=== PATIENT | male | born 1940 | race Caucasian/White ===

== ENCOUNTER → 2016-08-18 | Outpatient (CLI) | payer OTHER, MEDICARE ==
[~2016-08-18] MED LIST: RANI75TA7 PO; SYN50 PO; SYN75 PO
== END | disposition home or self-care (01) ==
LOC: C.LAB1850 10:49
PROVIDERS: ATTEND Family Medicine
DX: E55.9 Vitamin D deficiency, unspecified (principal); E03.9 Hypothyroidism, unspecified

== ENCOUNTER → 2016-10-26 | Outpatient (CLI) | payer OTHER, MEDICARE ==
--- NOTE | 2016-10-26 09:13 | DIAGNOSTIC IMAGING REPORT ---
RIGHT SHOULDER MIN 2 VIEWS CLINICAL HISTORY: Right shoulder pain. Trauma. COMPARISON: None. DISCUSSION: There is a fracture the distal right clavicle. No fractures the proximal humerus are visualized. There are osteoarthritic changes involving the humeral acromial joint. There are humeral head spurs. There is no dislocation. IMPRESSION: 1. Acute fracture of the distal right clavicle 2. No fractures or dislocations of the proximal right humerus Electronically signed by: Jason Adams M.D. 10/26/2016 9:11 AM Dictated Date/Time: 10/26/2016 9:10 AM
== END | disposition home or self-care (01) ==
LOC: C.RDSM 08:57
PROVIDERS: ATTEND Physician Assistant
DX: M25.511 Pain in right shoulder (principal)

== ENCOUNTER → 2016-11-08 | Outpatient (CLI) | payer OTHER, MEDICARE ==
--- NOTE | 2016-11-06 13:39 | DIAGNOSTIC IMAGING REPORT ---
RIGHT CLAVICLE COMPLETE CLINICAL HISTORY: RIGHT CLAVICLE FX Right trauma. Pain. COMPARISON: 10/26/2016 DISCUSSION: Oblique fracture distal right clavicle. No change in alignment as compared to the prior study. Degenerative change glenohumeral joint as well as acromioclavicular joint. Old fracture right third rib as well as second rib. There is no evidence for soft tissue swelling. IMPRESSION: Fracture distal aspect right clavicle. No change in alignment from the prior study. Electronically signed by: Anjel Romero M.D. 11/06/2016 1:38 PM Dictated Date/Time: 11/06/2016 1:37 PM
== END | disposition home or self-care (01) ==
LOC: C.RDSM 14:59
PROVIDERS: ATTEND Physician Assistant
DX: Z09 Encounter for follow-up examination after completed treatment for conditions other than malignant neoplasm (principal); M25.511 Pain in right shoulder

== ENCOUNTER → 2017-02-12 | Outpatient (CLI) | payer OTHER, MEDICARE ==
[2017-02-12 14:24] LABS: THYROID STIMULATING HORMONE 4.93 uIu/ml (0.300-4.500)
--- NOTE | 2017-02-19 17:22 | CODING QUERY MEDICAL NECESSITY ---
SUPPORTING DIAGNOSIS NEEDED A supporting diagnosis is required for the test/procedure performed on this patient in order for us to be reimbursed by the patient's insurance. Please provide a supporting diagnosis for the following test/procedure listed below next to the test name along with your signature. *If there is no additional diagnosis for this patient that would support the following test/procedure please document that below next to the test/procedure. Test(s)/Procedure(s) that require a supporting diagnosis: * VITAMIN D, 25-HYDROXY DIAGNOSIS: Provider Signature: Date: Thank you Terrie Acuna [employer] Management Once completed, please kindly fax back to [phone] For questions please call [phone]
== END | disposition home or self-care (01) ==
LOC: C.LABBC 11:35
PROVIDERS: ATTEND Family Medicine
DX: E29.1 Testicular hypofunction (principal); E55.9 Vitamin D deficiency, unspecified

== ENCOUNTER → 2017-03-08 | Outpatient (CLI) | payer OTHER, MEDICARE | END | disposition home or self-care (01) | LOC: C.RDSM 07:45 | PROVIDERS: ATTEND Physical Medicine & Rehabilitation Sports Medicine | DX: M16.12 Unilateral primary osteoarthritis, left hip (principal); S42.009A Fracture of unspecified part of unspecified clavicle, initial encounter for closed fracture; X58.XXXA Exposure to other specified factors, initial encounter ==

== ENCOUNTER → 2017-07-23 | Outpatient (CLI) | payer OTHER, MEDICARE | END | disposition home or self-care (01) | LOC: C.LABBC 10:38 | PROVIDERS: ATTEND Family Medicine | DX: E03.9 Hypothyroidism, unspecified (principal); E55.9 Vitamin D deficiency, unspecified ==

== ENCOUNTER 2023-09-29 06:33 | Observation (INO) ==
--- NOTE | 2023-09-16 10:07 | Anesthesiology Consultation ---
Date of Service September 16, 2023 Assessment & Plan (1) Encounter for pre-operative examination: Chart Review Chart Review: Acceptable Risk for Surgery and Patient NOT seen in Pre Admission Testing Patient is NOT an ideal OPJ candidate (currently 23 hour observation) -Infectious Disease screening: Per PAT nursing assessment on 09/16/23. No known infectious disease contacts in past 10 days or current infectious disease sy mptoms. No recent travel outside the country. Patient seen by PCP 09/06/2023 = patient scheduled to have upcoming hip replacement. Hip replacement originally to be done in January 2023 but had to be postponed September 2023 to allow for him to have extensive dental work done. He has an acceptable risk for the planned total hip replacement. Postprocedural hypothyroidismon levothyroxine. ED. GERDon famotidine. Pacemakerfollows with cardiology. Sleep behavior disorder. Lymphopeniawill follow CBC. Patient seen by cardiology 09/03/2023 = patient seen for routine cardiology follow-up as well as preoperative cardiology evaluation and risk assessment. Patient presents today feeling well. Had recent echo that revealed preserved LV systolic function and mild AAS. Nuclear stress test about 6 months ago without inducible ischemia. Stable cardiac symptoms. BP controlled. No anginal complaints. Mild noted and will be monitored with yearly echo. No overt cardiac contraindications to elective hip replacement. Cardio risks discussed. Patient aware of risks and wishes to proceed. Standard pacemaker precautions should be taken (Medtronic device). Patient does not have defibrillator. Continue current medications. Follow-up in 6 months. History Surgery Operation Date: 09/29/23 09:00 Proposed Procedures p Left Hip Arthroplasty(Left) - Tunde Carvajal MD Height/Weight Height: 5 ft 9 in Weight: 75.75 kg Allergies Allergy/AdvReac Type Severity Reaction Status Date / Time adhesive Allergy Mild Blistering Verified 09/16/23 08:59 gramicidin D Allergy Mild Rash Verified 09/16/23 08:59 neomycin Allergy Mild Rash Verified 09/16/23 08:59 nystatin Allergy Mild Rash Verified 09/16/23 08:59 Medications Home Medications Medication Instructions Recorded Confirmed Last Taken sildenafil (pulm.hypertension) 20 100 mg PO DAILY PRN sexual activity 03/31/22 09/16/23 Unknown mg tablet famotidine 20 mg tablet 20 mg PO DAILY PRN Acid Reflux 04/01/22 09/16/23 Unknown levothyroxine 50 mcg tablet See Rx Instructions .Route 10/21/22 09/16/23 Unknown (Synthroid) .COMPLEX #205 tabs cholecalciferol (vitamin D3) 25 50 mcg PO BID 02/01/23 09/16/23 Unknown mcg (1,000 unit) tablet (Vitamin D3) calcium carbonate 300 mg (750 mg) 300 mg PO BID PRN Acid Reflux 09/16/23 09/16/23 Unknown chewable tablet (Tums) Past Medical History Medical History (Updated 09/16/23 @ 11:51 by Inessa Dillard PA-C) Dyslipidemia Erectile dysfunction GERD (gastroesophageal reflux disease) H/O hydrocele History of COVID-19 x2, most recent approximately 01/11/23 (Urgent Care; [facility])- sore throat for 2 days, had Paxlovid LBBB (left bundle branch block) Chronic Mild aortic stenosis Echo 02/02/23: Mild aortic stenosis (BRITTANY 1.4 cm, MG 9.1 mmHg) PAC (premature atrial contraction) follows with Dr. 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- s/p pacemaker 2020 Past Family History Family History Father , age 98 BPH (benign prostatic hyperplasia) CHF (congestive heart failure) Mother , age 84 T-cell lymphoma Brother , age 59 Sudden cardiac Brother Spinal stenosis GERD (gastroesophageal reflux disease) Brother Osteoarthritis Brother Migraine Denies family history of Ovarian cancer Prostate cancer Myocardial infarction Breast cancer Colorectal cancer Past Surgical History Surgical History H/O radioactive iodine thyroid ablation 2004 (for overactive thyroid, non-cancerous) History of colonoscopy History of cryosurgery Hx of oral surgery 04/2023 S/P cataract extraction R/L S/P inguinal hernia repair Social History Smoking Status: Never smoker Do You Dip or Chew Tobacco: No Hx Alcohol Use: Yes Alcohol type: beer alcohol intake frequency: a few times a week Hx Substance Use: No substance use type: does not use Substance Use Type Other:: uses weekly> advised 3 day hold or longer Lab Results Anesthesia Preop Results Results Anesthesia Widget: WBC 4.70 K/ul (4.8-10.8) L 08/30/23 Hgb 15.1 g/dl (14.0-18.0) 08/30/23 Hct 43.6 % (42.0-52.0) 08/30/23 Plt 198 K/uL (130-400) 08/30/23 Na 139 mmol/L (136-145) 08/30/23 K 4.6 mmol/L (3.5-5.1) 08/30/23 Cl 107 mmol/L (98-107) 08/30/23 CO2 27 mmol/L (21-32) 08/30/23 BUN 24 mg/dl (6-23) H 08/30/23 Creat 0.83 mg/dl (0.6-1.4) 08/30/23 Glucose Level 80 mg/dl (70-99(Fasting)) 08/30/23 PT 11.6 Seconds (9.0-12.0) 08/30/23 PTT 27 Seconds (21-31) 08/30/23 INR 1.1 (0.9-1.1) 08/30/23 TSH 2.097 uIu/ml (0.300-4.500) 08/30/23 HA1c 5.6 % (4.5-5.6) 08/30/23 Urine Color Yellow 08/30/23 Urine Appearance Clear (Clear) 08/30/23 Urine pH 5.5 (4.5-7.5) 08/30/23 Urine Specific [place] 1.021 (1.000-1.030) 08/30/23 Urine Protein Negative (Negative) 08/30/23 Urine Glucose (UA) Negative (Negative) 08/30/23 Urine Ketones Negative (Negative) 08/30/23 Urine Blood Negative (Negative) 08/30/23 Urine Nitrite Negative (Negative) 08/30/23 Urine Bilirubin Negative (Negative) 08/30/23 Urine Urobilinogen Negative (Negative) 08/30/23 Urine Leukocyte Esterase Negative (Negative) 08/30/23 Blood Type O Positive 08/30/23 Antibody Screen NEGATIVE 08/30/23 Testing Electrocardiogram Date: 08/30/23 AV dual paced rhythm at 83bpm Chest X-Ray Date: 02/04/23 FINDINGS: No pneumothorax. No pleural effusions. The lungs are hyperexpanded with mild emphysematous changes. The heart is normal in size. No focal lung consolidations to suggest a pneumonia. No evidence for pulmonary edema. There is a right-sided dual-chamber pacemaker. Mild compression deformities within the mid to lower thoracic spine and L1 level. These are technically age indeterm inate but likely chronic. IMPRESSION: No acute process within the chest. Chronic changes as described above. Echocardiogram Date: 02/02/23 LVEF 55-59%. LV wall motion is normal. Mildly increased concentric LV wall thickness. Mildly calcified aortic valve. Mild aortic valve stenosis is present (BRITTANY 1.4 cm, MG 9.1 mmHg). Mild TR. Grade 1 diastolic dysfunction. Stress Test Date: 02/05/23 Type: nuclear The combined exercise/pharmacologic myocardial perfusion imaging study is normal with no evidence of inducible ischemia. Gated SPECT imaging reveals normal myocardial thickening and wall motion. LVEF calculated to be 66%. Fixed apical inferior perfusion defect. In light of the appearance of the raw data and the normal gated wall motion, this is felt to be due to attenuation artifact. There is no ischemia. Other Testing Pacemaker check 06/29/23= [employer]tronic device. Implant date 10/20/20. Battery life 9.3 years. Mode: DDDR. Atrial pacing 77.6%. Ventricular paced 99.0%.
--- NOTE | 2023-09-29 06:22 | History & Physical Bridge Note ---
Date of Service September 29, 2023 History & Physical Bridge Note I have examined the patient, reviewed the History & Physical and in the interval since the performance of the History & Physical I have noted the following changes of clinical significance:consent and site verified. no changes noted
[~2023-09-29 06:33] MED LIST changes: +BUPIVACAINE 0.5 % 5 MG/1 ML PF 10ML VIAL ONE; -RANI75TA7 PO; -SYN50 PO; -SYN75 PO
[2023-09-29] MEDS: LR 500ML BOLUS, THEN 15ML/HR IV SCH (07:15)
[2023-09-29] MEDS: LR 60ML/HR IV SCH (07:15)
[2023-09-29] MEDS ORDERED: MIDAZOLAM HCL 1 MG/ML 2ML VIAL ONE (07:58)
[2023-09-29] MEDS ORDERED: fentaNYL citrate PF 100 MCG/2 ML VIAL ONE (07:58)
[2023-09-29] MEDS: TRANEXAMIC ACID 1,000 MG **IV Pre-op IV SCH (09:00)
[2023-09-29] MEDS: ceFAZolin 2000MG 2,000 MG/15 ML SYR IV SCH ×2 (09:22→16:34)
[2023-09-29] MEDS ORDERED: PROPOFOL IV EMULSION 10 MG/ML 20 ML VIAL IV ONE ×2 (09:56→09:57)
[2023-09-29] MEDS ORDERED: LIDOCAINE 2% 2 ML VIAL/AMP(20MG/ML) INFIL ONE (09:56)
[2023-09-29] MEDS ORDERED: ONDANSETRON INJ 2 MG/ML 2 ML VIAL ONE (09:57)
[2023-09-29] MEDS ORDERED: ePHEDrine sulfate 50 MG/5 ML SYR ONE (09:57)
[2023-09-29] MEDS ORDERED: ePHEDrine sulfate 50 MG/ML AMP ONE (10:12)
[2023-09-29] MEDS: ORTHO JOINT ANESTHETIC ONE (10:15)
[2023-09-29] MEDS: TRANEXAMIC ACID 1,000 MG **IV Intra-op IV SCH (10:30)
[2023-09-29] MEDS: ROPIVACAINE 0.5% HCL/PF 246 MG, Ketorolac (*for OR use only*) 30 MG, EPINEPHrine 30MG/3... INFIL SCH (10:45)
--- NOTE | 2023-09-29 10:47 | Post Operative Brief Note ---
Immediate Post Op Note v1 Date of Surgery September 29, 2023 Pre & Post Diagnosis Operation Date: 09/29/23 08:50 Pre-Op Diagnosis: Left Hip Osteoarthritis Post-Op Diagnosis: Left Hip Osteoarthritis I identified the patient and participated in the time-out.: Yes Procedure Operation Date: 09/29/23 08:50 Actual Procedures p Left Hip Arthroplasty(Left) - Tunde Carvajal MD Surgeon Tunde Carvajal MD Regulation Supervisor DANISHA/Live Estimated Blood Loss 75 Findings Consistent with Post-Op Diagnosis Severe osteoarthritis left Fluids See anesthesia report Complications None
--- NOTE | 2023-09-29 10:51 | Operative Report ---
Post Operative Report Pre & Post Diagnosis Operation Date: 09/29/23 08:50 Pre-Op Diagnosis: Left Hip Osteoarthritis Post-Op Diagnosis: Left Hip Osteoarthritis I identified the patient and participated in the time-out.: Yes Procedure Operation Date: 09/29/23 08:50 Actual Procedures p Left Hip Arthroplasty(Left) - Tunde Carvajal MD Surgeon Tunde Carvajal MD Dock Superintendent DANISHA/Live Estimated Blood Loss 75 Findings Consistent with Post-Op Diagnosis Severe osteoarthritis left hip Fluids See anesthesia report Specimens Bone pathology Drains None Complications None Indications Severe osteoarthritis with marked pain failed conservative management Description of Procedure After the patient was appropriate endophyte site provide consent provide antibiotics confirmed to be given he was placed in right lateral decubitus position and the left lower extremity prepped and draped use routine fashion. H e was about a centimeter and a half short on that side. He had marked limitations of range of motion severe pain. Posterior approach the hip was then made sharp section carried through skin blunt dissection down to the fascia this was then incised under direct vision with the thermal device. Retractor was Placed taking care to protect the sciatic nerve short external rotators were identified and released. The capsule was then identified teed and preserved. The hip was then dislocated. There was marked over overgrowth and marked osteophytes and cam lesions and severe osteoarthritis of the femoral head there was marked labral tearing and displacement in the joint. Appropriate Retractors Were Placed along the Posterior Capsule of the Hip Joint Care Taken to Protect the Sciatic Nerve Anterior Retractor Placed with Excellent Exposure Obtained Serial Reaming Carried up to a Size 56 and a 56 Cup Impacted into Position and Secured with 2 Additional Screws 6.5 X 30 and 6.5 X 25 1 Had an Excellent Bite on an Average Bite. Osteophytes Were Then Resected along the Remaining Cup and Then the Dual Mobility Liner Seated Impacted into Position. It Was Then Flexed Internally Rotated Prepared with a School Library Media Specialist Canal Finder Lateralizing Rest and Serial Broaching up to a Size 9 Trial Reduction with a +5 Head Was Excellent with Lengths and Stability. The Hip Was Then Dislocated All Remaining Trial Elements Were Removed Wound Was Irrigated with Betadine Pulsavac and Then the Permanent Stem and Head Liner Combo Were Then Placed Hip Reduced It Was Stable in All Planes Leg Lengths Were Excellent. Wound Was Then Irrigated 1 Final Time and Closed with #2 Vicryl 2-0 Vicryl and Stainless to Clips from Dressing Applied the Patient Transferred Recovery in Satisfactory Addition He Tolerated the Procedure Well. EBL Was 75 Cc or Less bone pathology pending DVT prophylaxis start tomorrow with Eliquis. Summary of implant size 56 cup 6 acetabular shell sector dome cover /49 9 standard collared stem Actis AC Tis bipolar head 28+5 head head was ceramic. Bone pathology pending. I attest to the content of the Intraoperative Record and any orders documented therein. Any exceptions are noted below.
--- NOTE | 2023-09-29 10:52 | Orthopedic Progress Note ---
Date of Service September 29, 2023 Subjective Tolerated procedure well had no issues during surgery family notified. X-ray pending. EBL 100 cc or less. Results & Data Vital Signs (Past 12 Hours) Vital Signs Temp Pulse Resp BP Pulse Ox O2 Del Method 09/29/23 07:07 36.5 C 84 18 158/99 H 98 Room Air
--- NOTE | 2023-09-29 10:53 | Discharge Summary ---
Date of Service September 30, 2023 Admission HPI Per Admitting Provider Severe left hip pain Principal Diagnosis Severe osteoarthritis left hip Discharge Data Allergies Allergy/AdvReac Type Severity Reaction Status Date / Time adhesive Allergy Mild Blistering Verified 09/29/23 07:04 gramicidin D Allergy Mild Rash Verified 09/29/23 07:04 neomycin Allergy Mild Rash Verified 09/29/23 07:04 nystatin Allergy Mild Rash Verified 09/29/23 07:04 Vaccinations None Consultations None Procedures Performed Operation Date: 09/29/23 08:50 Actual Procedures p Left Hip Arthroplasty(Left) - Tunde Carvajal MD Hospital Course (1) Status post left hip replacement: Plan Total hip care pathway Total Time Total Time Spent Total Time Spent (In Minutes): 5 minutes Discharge Plan Discharge Items Reason For Visit: Left Hip Osteoarthritis Discharge Diagnosis: Same Condition on Discharge: Good Activity: Per Instructions section Lifting: Wait until after follow-up appointment Bathing: Keep incision dry Sexual Activity: Wait until after follow-up appointment Exercise/Sports: Wait until after follow-up appointment Call non-emergency contact if: your temperature is above 101.5, your wound has increased redness, your wound has increased drainage and your wound pain has increased Follow-up/Referrals: Terry Albrecht MD [Primary Care Provider] - Add Attending Provider Instructions: DIET: * Resume previous diet. MEDICATIONS: * Please take your prescriptions as instructed at your pre-op appointment and/or see medication discharge instructions listed above. * If concerns develop, call your physician's office at . SPECIAL CARE INSTRUCTIONS: * Ice/Elevate as instructed. * Keep dressing clean, dry, intact. * Your surgical extremity may be discolored due to prepping agents used on the skin. A bluish-green tint is a normal variant and should not cause alarm. Call your doctor at [phone] if: * Temperature above 101 degrees * Pain not relieved by pain medicine ordered * There is increased drainage or redness from any incision * You have any unanswered questions, problems or concerns. FOLLOW UP VISIT: * If not already scheduled, please call the office at to schedule a follow-up appointment. Pending Studies at Discharge: Yes (Bone pathology) Stand-Alone Forms: My [facility] [address] Medications and DC Order Prescriptions: No Action levothyroxine [Synthroid] 50 mcg tablet See Rx Instructions .ROUTE .COMPLEX Qty: 205 5RF Rx Instructions: Take 1 and a half (125 mcg) tablets daily 4 days/week alternating with 2 (100 mcg) tablets daily for 3 days/week sildenafil (pulm.hypertension) [Revatio] 20 mg tablet 100 mg PO DAILY PRN (Reason: sexual activity) famotidine [Pepcid] 20 mg tablet 20 mg PO DAILY PRN (Reason: Acid Reflux) cholecalciferol (vitamin D3) [Vitamin D3] 25 mcg (1,000 unit) Tablet 50 mcg PO BID Tums 300 mg (750 mg) Tablet,Chewable 300 mg PO BID PRN (Reason: Acid Reflux) Admission Data Admit Date/Time: 09/29/23 11:17 Attending Provider: Tunde Carvajal Admit Provider: Tunde Carvajal Primary Care Provider: Terry Albrecht. Other Providers: [facility],Home Healthcare
--- NOTE | 2023-09-29 11:03 | Orthopedic Progress Note ---
Date of Service September 29, 2023 Subjective Doing well status post a left total replacement. He is awake and alert. He denies any chest pain shortness of breath fever chills nausea or headache. Neurovascular check is limited by spinal this point in time. Wound dressing clean dry and intact. X-ray pending. Discussed he is on hip and surgery with his . Assessment overall doing well continue with care pathway obtain x-ray in recovery room. Begin anticoagulation tomorrow. Results & Data Vital Signs (Past 12 Hours) Vital Signs Temp Pulse Resp BP Pulse Ox O2 Del Method 09/29/23 07:07 36.5 C 84 18 158/99 H 98 Room Air
--- NOTE | 2023-09-29 11:03 | Operative Report ---
Post Operative Report Pre & Post Diagnosis Operation Date: 09/29/23 08:50 Pre-Op Diagnosis: Left Hip Osteoarthritis Post-Op Diagnosis: Left Hip Osteoarthritis I identified the patient and participated in the time-out.: Yes Procedure Operation Date: 09/29/23 08:50 Actual Procedures p Left Hip Arthroplasty(Left) - Tunde Carvajal MD Surgeon Tunde Carvajal MD Family Life Counselor DANISHA/Live Estimated Blood Loss 75 Findings Consistent with Post-Op Diagnosis Same as postoperative diagnosis. Specimens The resected femoral head and part of the femoral neck. Description of Procedure Please see detailed operative note. I attest to the content of the Intraoperative Record and any orders documented therein. Any exceptions are noted below.
--- NOTE | 2023-09-29 11:06 | Operative Report ---
Post Operative Report Pre & Post Diagnosis Operation Date: 09/29/23 08:50 Pre-Op Diagnosis: Left Hip Osteoarthritis Post-Op Diagnosis: Left Hip Osteoarthritis I identified the patient and participated in the time-out.: Yes Procedure Operation Date: 09/29/23 08:50 Actual Procedures p Left Total Hip Arthroplasty(Left) - Tunde Carvajal MD Surgeon JUANIS Carvajal MD Precision Machining Instructor DANISHA/Live COOPER Estimated Blood Loss 75 Findings Consistent with Post-Op Diagnosis see operative report Specimens see operative report Drains none Complications none Disposition Accompanied Patient To Recovery: Yes Indications This 83 year old male presented to the office with complaints of persisting left hip pain. He had tried conservative care measures without improvement. Symptoms have been ongoing for years and have become worse with time. He elected to proceed with surgical intervention after being educated about potential risks and outcomes. Preoperative imaging was obtained. Description of Procedure The patient was administered a spinal anesthetic and then taken to the operating room where he was given sedation. He was prepped and draped in the usual sterile fashion. Please see Dr. Carvajal's operative report for specifics of the procedure. I was present for the entire case from initial patient positioning through final wound closure. Assistance was provided in tissue retraction, hemostasis, trial implant placement, final implant placement, and final wound closure. The patient was taken to the recovery room in satisfactory condition. I attest to the content of the Intraoperative Record and any orders documented therein. Any exceptions are noted below.
--- NOTE | 2023-09-29 11:34 | XRay Report ---
XR pelvis 1-2V routine HISTORY: 83 years-old Male S P L KATIE left hip arthroplasty COMPARISON: 08/30/2023 TECHNIQUE: AP view of the pelvis FINDINGS: Satisfactory alignment of the left hip arthroplasty with overlying skin candy, expected postoperati ve soft tissue swelling with deep tissue air. No acute fracture or unexpected opaque foreign body nayana ntified. IMPRESSION: Left hip arthroplasty with expected postoperative changes. ACT 112: Negative or not required by law. The above report was generated using voice recognition software. It may contain grammatical, syntax o r spelling errors. Electronically signed by: Wiley Dick M.D. 09/29/2023 11:33 AM
[2023-09-29] MEDS ORDERED: NALOXONE HCL 0.4 MG/1 ML VIAL/CARP IV PRN (13:01)
[2023-09-29] MEDS ORDERED: diphenhydrAMINE 50 MG/ML VIAL IV PRN (13:01)
[2023-09-29] MEDS ORDERED: ONDANSETRON INJ 2 MG/ML 2 ML VIAL IV PRN (13:01)
[2023-09-29] MEDS ORDERED: METOCLOPRAMIDE HCL INJ 5 MG/ML 2 ML VIAL IV PRN (13:01)
[2023-09-29] MEDS ORDERED: HYDROmorphone INJ 0.5 MG/0.5 ML SYR IV PRN (13:01)
[2023-09-29] MEDS ORDERED: TAMSULOSIN HCL 0.4 MG CAP PO PRN (13:01)
[2023-09-29] MEDS ORDERED: MAGNESIUM HYDROXIDE SUSP 30 ML UDC PO PRN (13:01)
[2023-09-29] MEDS ORDERED: bisacodyL 10 MG SUPP PR PRN (13:01)
[2023-09-29] MEDS ORDERED: ALUMINUM/MAGNESIUM SUSP 30 ML UDC PO PRN (13:01)
[2023-09-29] MEDS ORDERED: CALCIUM CARBONATE 500 MG CHEWABLE TAB PO PRN (13:24)
[2023-09-29] MEDS: ACETAMINOPHEN 500 MG TAB PO SCH (13:37)
[2023-09-29] MEDS: KETOROLAC TROMETHAMINE 15 MG/ML VIAL IV SCH (13:37)
[2023-09-29] MEDS: SODIUM CHLORIDE 0.9% 1,000 ML IV SCH (13:37)
--- NOTE | 2023-09-29 14:03 | Anesthesiology Progress Note ---
Date of Service September 29, 2023 Anesthesia Post Procedure Vital Signs Vital Signs: Temp Pulse Pulse Pulse Resp BP BP 09/29/23 13:43 36.4 C L 66 16 134/79 09/29/23 13:15 36.4 C L 52 L 16 133/77 09/29/23 12:45 36.4 C L 56 L 16 159/80 H 09/29/23 12:30 59 L 16 146/77 H 09/29/23 12:15 60 18 146/77 H 09/29/23 12:05 36.3 C L 61 20 147/74 H 09/29/23 11:50 59 L 18 152/83 H 09/29/23 11:40 59 L 17 162/77 H 09/29/23 11:30 60 16 157/63 H 09/29/23 11:20 56 L 12 146/69 H 09/29/23 11:10 63 12 141/64 H 09/29/23 11:00 36.1 C L 62 19 141/86 H 09/29/23 07:07 36.5 C 84 18 158/99 H Pulse Ox O2 Del Method 09/29/23 13:43 96 Room Air 09/29/23 13:15 95 Room Air 09/29/23 12:45 96 Room Air 09/29/23 12:30 95 Room Air 09/29/23 12:15 94 Room Air 09/29/23 12:05 95 Room Air 09/29/23 11:50 95 Room Air 09/29/23 11:40 96 Room Air 09/29/23 11:30 96 Room Air 09/29/23 11:20 97 Room Air 09/29/23 11:10 96 Room Air 09/29/23 11:00 98 Room Air 09/29/23 07:07 98 Room Air Notes Mental Status: alert / awake / arousable Patient Amnestic to Procedure: Yes Nausea / Vomiting: adequately controlled Pain: adequately controlled Airway Patency, RR, SpO2: stable & adequate BP & HR: stable & adequate Hydration State: stable & adequate Neuraxial Anesthesia: was administered and sensory block is resolving Anesthetic Complications: no major complications apparent
[2023-09-29] MEDS: ASCORBIC ACID 500 MG TAB PO SCH (16:34)
[2023-09-29] MEDS: FERROUS GLUCONATE 324 MG TAB PO SCH (16:34)
[2023-09-29] MEDS: oxyCODONE HCL IR 5 MG TAB (IMMEDIATE RELEASE) PO PRN (16:34)
--- NOTE | 2023-09-29 17:35 | Orthopedic Progress Note ---
Date of Service September 29, 2023 Assessment & Plan Admission and Anticipated Discharge Date Admission Date: September 29, 2023 Orthopedic Progress Note Postop check status post left total placement. He sitting up in the chair doing well. He has no major issues. He is eating and drinking well. He is ambulatory. He is voiding. Vital signs are stable he is afebrile. Neurovascular check femoral sciatic nerve is normal wound dressing clean dry and intact. Assessment doing well at this discontinue IV fluids. Allow him to ambulate in the hallway. Prepare for discharge tomorrow.
[2023-09-29] MEDS: DOCUSATE SODIUM 100 MG CAP PO SCH (20:22)
[2023-09-29] MEDS: SENNA 8.6 MG TAB PO SCH (20:22)
[2023-09-30] MEDS: LEVOTHYROXINE SODIUM 50 MCG TABLET PO SCH (05:49)
--- NOTE | 2023-09-30 06:39 | Orthopedic Progress Note ---
Date of Service September 30, 2023 Assessment & Plan Admission and Anticipated Discharge Date Admission Date: September 29, 2023 Orthopedic Progress Note Postop day #1 status post left total replacement. Patient is sitting up in bed. He denies any chest pain shortness of breath fever chills nausea vomiting or headache. Vital signs are stable he is afebrile. Neurovascular check normal; was normal. Wound dressing clean dry and intact. Hip located. Assessment doing well status post left total replacement. Discharged home after PT OT today case management to finalize any services. Dressing change by PA today start his Eliquis today.
[2023-09-30] MEDS: APIXABAN 2.5 MG TAB PO SCH (07:34)
[2023-09-30] MEDS: dexAMETHasone 10 MG in SYRINGE 0 ML IV SCH (07:34)
[2023-09-30] MEDS: MULTIVITAMIN TAB PO SCH (07:34)
[2023-09-30 07:44] LABS: Calcium 8.4 mg/dl (8.6-10.3); Potassium 4.9 mmol/L (3.5-5.1)
[2023-09-30 07:45] LABS: Basophils # (auto) 0.02 K/uL (0.00-0.20); Basophils % (auto) 0.3 %; Eosinophils # (auto) 0.08 K/uL (0.00-0.50); Eosinophils % (auto) 1.3 %; Hemoglobin 12.6 g/dl (14.0-18.0); Immature Granulocytes # (auto) 0.01 K/uL (0.01-0.20); Immature Granulocytes % (auto) 0.2 %; Lymphocytes # (auto) 0.73 K/uL (1.20-3.40); Lymphocytes % (auto) 12.1 %; Mean Corpuscular Hemoglobin 30.8 pg (25.0-34.0); Mean Corpuscular Hgb Conc 34.1 g/dL (32.0-36.0); Mean Corpuscular Volume 90.5 fL (80.0-100.0); Mean Platelet Volume 9.9 fL (9.4-12.4); Monocytes # (auto) 0.47 K/uL (0.11-0.59); Monocytes % (auto) 7.8 %; Neutrophils # (auto) 4.74 K/uL (1.40-6.50); Neutrophils % (auto) 78.3 %; Platelet Count 156 K/uL (130-400); RDW Coefficient of Variation 12.6 % (11.5-14.5); RDW Standard Deviation 41.5 fL (36.4-46.3); Red Blood Count 4.09 M/uL (4.70-6.10); White Blood Count 6.05 K/ul (4.8-10.8)
[2023-09-30 07:50] LABS: BUN Creatinine Ratio 21.8 (10-20); Creatinine Clr Calc Pharmacy 63.2 ml/min; Est GFR (African American) 91.9 ml/min; Est GFR (Non-African American) 79.3 ml/min
--- NOTE | 2023-09-30 10:41 | Orthopedic Progress Note ---
Date of Service September 30, 2023 Assessment & Plan (1) Status post left hip replacement: Plan: The patient was educated regarding today's findings. His dressing was changed today by me. A new pressure dressing comprised gauze, ABDs, and Medipore tape was applied. He may leave this in place until seen in the office in 2 weeks. He can also be changed on Wednesday by the home health nurse. Written discharge instructions were provided. Prescriptions for Percocet and for Eliquis 2.5 mg were sent to his pharmacy. Start his Eliquis this evening with dinner. Ice the hip frequently to reduce pain and swelling. Follow-up in the office in 2 weeks as scheduled for staple removal Call the office with any other concerns. Continue sleeping on his back with the abduction pillow between his legs until seen in 2 weeks. Admission and Anticipated Discharge Date Admission Date: September 29, 2023 Subjective This 83-year-old male is seen today in his room. He is 1 day status post left total hip arthroplasty. He states he is doing very well. He only used 1 Percocet tablet overnight. He states he currently has no pain. He feels ready for discharge to home. His is present today. He has already finished his breakfast. He denies any chest pain, shortness of breath, nausea, vomiting, or abdominal pain. No additional complaints. He has been out of bed and was walking in his room and in the hallway last evening. Review of Systems Review of Systems: Unchanged from yesterday. Physical Exam Physical Exam: General: Well-developed, well-nourished, elderly male, in no acute distress. Sitting in his bedside chair. Alert and oriented. Skin: Warm dry with good turgor. No rashes. Postsurgical dressing is in place on the left hip. Upon removal, candy are in place. Wound edges are well- approximated. No erythema or ecchymosis. Minimal postoperative edema. His dressings have scant dried blood on the inner dressings. There is no active bleeding at this time. Musculoskeletal: The patient rises easily from his bedside chair without assistance. He is able to stand at bedside without his walker. He has a slow antalgic gait, but is walking very well. He has intact motor function for hip flexion, knee flexion, knee extension, and ankle dorsiflexion/plantarflexion. No significant pain with passive or active motion of the hip. Neurologic: Gross sensation is intact across the left leg by soft touch. Results & Data Vital Signs (Past 12 Hours) Vital Signs Temp Pulse Resp BP Pulse Ox O2 Del Method 09/30/23 07:42 Room Air 09/30/23 06:34 36.5 C 54 L 16 134/83 94 Room Air 09/30/23 03:00 36.5 C 58 L 16 126/70 97 Room Air 09/29/23 23:00 36.4 C L 53 L 16 121/60 96 Room Air Laboratory Results CBC obtained this morning shows a white count of 6.05. H&H of 12.6 and 37.0. Platelets 156,000. Sodium today is 139. Potassium 4.9. Chloride 110. Anion gap of 5. BUN 19. Creatinine 0.7. Glucose this morning is 106.
[2023-10-01] MEDS ORDERED: LEVOTHYROXINE SODIUM 50 MCG TABLET PO SCH (06:30)
[2023-10-01] MEDS ORDERED: LEVOTHYROXINE SODIUM 125 MCG TABLET PO SCH (06:30)
== END 2023-09-30 12:05 | disposition home health service (06) ==
LOC: 3E 06:33 → ASU 06:33